=== PATIENT | male | born 1985 | race Caucasian/White ===

== ENCOUNTER 2019-09-16 14:44 | Emergency (ER) | payer SELFPAY ==
--- NOTE | 2019-09-16 15:14 | ER Document Report ---
ED Medical Screen (RME) - General Chief Complaint: Dizziness Stated Complaint: DIZZINESS Time Seen by Provider: 09/16/19 15:02 Mode of Arrival: Wheelchair Information source: Patient, Relative Notes: Family member states that they were shopping in a store and the patient had a coughing fit. Patient sister states that the coughing fit seemed very protracted and they thought that he was joking. Patient then complained of dizziness lightheadedness and left-sided headache pain with nausea. Patient has been coughing and spitting up. Sister states that patient has been confused and not acting right since. Symptoms happened just prior to arrival. I have greeted and performed a rapid initial assessment of this patient. A comprehensive ED assessment and evaluation of the patient, analysis of test results and completion of the medical decision making process will be conducted by additional ED providers. Physical Exam - Vital signs Vitals: Temp Pulse Resp BP Pulse Ox 98.3 F 82 16 147/94 H 93 09/16/19 14:53 09/16/19 14:53 09/16/19 14:53 09/16/19 14:53 09/16/19 14:53 - General Notes: Patient with occasional snoring episodes, bizarre behavior and then will shake his head and will respond appropriately to questions. Patient able to follow instructions. Course - Vital Signs Vital signs: Temp Pulse Resp BP Pulse Ox 98.3 F 82 16 147/94 H 93 09/16/19 14:53 09/16/19 14:53 09/16/19 14:53 09/16/19 14:53 09/16/19 14:53
--- NOTE | 2019-09-16 15:35 | RADIOLOGY REPORT (SQ) ---
EXAM DESCRIPTION: CHEST SINGLE VIEW COMPLETED DATE/TIME: 09/16/2019 3:15 pm REASON FOR STUDY: GONCALVES, AMS COMPARISON: None. EXAM PARAMETERS: NUMBER OF VIEWS: One view. TECHNIQUE: Single frontal radiographic view of the chest acquired. RADIATION DOSE: NA LIMITATIONS: None. FINDINGS: LUNGS AND PLEURA: No opacities, masses or pneumothorax. No pleural effusion. MEDIASTINUM AND HILAR STRUCTURES: No masses. Contour normal. HEART AND VASCULAR STRUCTURES: Heart normal in size. Normal vasculature. BONES: No acute findings. HARDWARE: None in the chest. OTHER: No other significant finding. IMPRESSION: NO ACUTE RADIOGRAPHIC FINDING IN THE CHEST. TECHNICAL DOCUMENTATION: JOB ID: [id number] [employer]- All Rights Reserved Reading location - IP/workstation name: [email or web address]
[2019-09-16] MEDS ORDERED: NORMAL SALINE 1000 ML 1,000 ML IV ONE (15:40)
--- NOTE | 2019-09-16 15:40 | RADIOLOGY REPORT (SQ) ---
EXAM DESCRIPTION: CT HEAD WITHOUT COMPLETED DATE/TIME: 09/16/2019 3:26 pm REASON FOR STUDY: GONCALVES, AMS COMPARISON: None. TECHNIQUE: Axial images acquired through the brain without intravenous contrast. Images reviewed wi th bone, brain and subdural windows. Additional sagittal and coronal reconstructions were generated. Images stored on PACS. All CT scanners at this facility use dose modulation, iterative reconstruction, and/or weight based d osing when appropriate to reduce radiation dose to as low as reasonably achievable (ALARA). [facility]: Dose Right [facility]: CareDose [facility]: Dose Right [facility]: Teradose 4D [facility]: Smart Curoverse RADIATION DOSE: CT Rad equipment meets quality standard of care and radiation dose reduction techniq ues were employed. CTDIvol: 53.2 - 55.2 mGy. DLP: 1965 mGy-cm. mGy. LIMITATIONS: Motion degraded exam. FINDINGS: VENTRICLES: Normal size and contour. CEREBRUM: No masses. No hemorrhage. No midline shift. No evidence for acute infarction. Normal gra y/white matter differentiation. No areas of low density in the white matter. CEREBELLUM: No masses. No hemorrhage. No alteration of density. No evidence for acute infarction. EXTRAAXIAL SPACES: No fluid collections. No masses. ORBITS AND GLOBE: No intra- or extraconal masses. Normal contour of globe without masses. CALVARIUM: No fracture identified. Evaluation limited secondary to motion artifact. PARANASAL SINUSES: No fluid or mucosal thickening. SOFT TISSUES: No mass or hematoma. OTHER: No other significant finding. IMPRESSION: No evidence of acute intracranial process. EVIDENCE OF ACUTE STROKE: NO. COMMENT: Quality ID # [id number]: Final reports with documentation of one or more dose reduction techniques (e.g., Automated exposure control, adjustment of the mA and/or kV according to patient size, use of iterative reconstruction technique) TECHNICAL DOCUMENTATION: JOB ID: [id number] [employer]- All Rights Reserved Reading location - IP/workstation name: [email or web address]
[2019-09-16] MEDS ORDERED: MECLIZINE HCL 25 MG TABLET PO ONE (15:41)
[2019-09-16 16:04] LABS: INTERNATIONAL RATION (INR) 0.92
[2019-09-16 16:05] LABS: PARTIAL THROMBOPLASTIN TIME 26.7 SEC (23.5-35.8)
[2019-09-16 16:08] LABS: PROTHROMBIN TIME 12.3 SEC (11.4-15.4)
[2019-09-16 16:13] LABS: ABSOLUTE BASOPHILS # (AUTO) 0.1 10^3/uL (0.0-0.2); ABSOLUTE EOSINOPHILS # (AUTO) 0.3 10^3/uL (0.0-0.6); ABSOLUTE LYMPHOCYTES (AUTO) 4.1 10^3/uL (0.5-4.7); ABSOLUTE MONOCYTES (AUTO) 0.8 10^3/uL (0.1-1.4); ABSOLUTE NEUT (AUTO) 6.3 10^3/uL (1.7-8.2); BASOPHILS % (AUTO) 0.5 % (0-2); EOSINOPHILS % (AUTO) 2.8 % (0-6); HEMATOCRIT 45.8 % (37.9-51.0); HEMOGLOBIN 15.8 g/dL (13.5-17.0); LYMPHOCYTES % (AUTO) 35.3 % (13-45); MEAN CORPUSCULAR HEMOGLOBIN 31.3 pg (27.0-33.4); MEAN CORPUSCULAR HGB CONC 34.5 g/dL (32.0-36.0); MEAN CORPUSCULAR VOLUME 91 fl (80-97); PLATELET COUNT 273 10^3/uL (150-450); RED BLOOD COUNT 5.05 10^6/uL (4.35-5.55); RED CELL DISTRIBUTION WIDTH 12.8 % (11.5-14.0); SEGMENTED NEUTROPHILS % (AUTO) 54.4 % (42-78); TOTAL CELLS COUNTED % (AUTO) 100 %; WHITE BLOOD COUNT 11.6 10^3/uL (4.0-10.5)
[2019-09-16 16:27] LABS: ALBUMIN 4.8 g/dL (3.5-5.0); ALKALINE PHOSPHATASE 51 U/L (38-126); ANION GAP 10 (5-19); ASPARTATE AMINO TRANSFERASE 18 U/L (17-59); BILIRUBIN,DIRECT 0.1 mg/dL (0.0-0.4); BILIRUBIN,TOTAL 0.4 mg/dL (0.2-1.3); BLOOD UREA NITROGEN 13 mg/dL (7-20); CALCIUM 9.3 mg/dL (8.4-10.2); CARBON DIOXIDE 29 mmol/L (22-30); CHLORIDE 101 mmol/L (98-107); CREATINE KINASE 108 U/L (55-170); GLUCOSE 103 mg/dL (75-110); POTASSIUM 4.2 mmol/L (3.6-5.0); TOTAL PROTEIN 8.1 g/dL (6.3-8.2)
[2019-09-16 16:39] LABS: CREATINE KINASE MB 0.65 ng/mL (<4.55)
[2019-09-16] MEDS: NORMAL SALINE 1000 ML 1,000 ML IV ONE ×2 (16:40→16:46)
[2019-09-16 16:41] LABS: TROPONIN I < 0.012 ng/mL
[2019-09-16 17:10] LABS: APPEARANCE,URINE CLEAR; BILIRUBIN,URINE NEGATIVE (NEGATIVE); COLOR,URINE YELLOW; GLUCOSE, URINE NEGATIVE (NEGATIVE); KETONES,URINE NEGATIVE (NEGATIVE); LEUKOCYTE ESTERASE,URINE NEGATIVE (NEGATIVE); NITRITE,URINE NEGATIVE (NEGATIVE); PROTEIN,URINE NEGATIVE (NEGATIVE); URINE SPECIFIC GRAVITY 1.023; UROBILINOGEN,URINE NEGATIVE mg/dL (<2.0)
--- NOTE | 2019-09-16 17:23 | ER Document Report ---
Entered by TESSIE LANTIGUA SCRIBE 09/16/19 1525 Acting as scribe for:GLENNY STORM DO ED General - General Chief Complaint: Dizziness Stated Complaint: DIZZINESS Time Seen by Provider: 09/16/19 15:02 Mode of Arrival: Wheelchair Information source: Patient Notes: This 34-year-old male patient presents to the emergency department today with complaints of dizziness. Patient states he has been having intermittent spells of dizziness with associated syncopal events for the last x2 years. Patient states today he did not pass out but he was "close to it" today. Patient states he has bilateral leg numbness and a cough. Patient states he has no pain today aside from his chronic back pain which is unchanged from baseline. Patient denies any recent drug usage, shortness of breath, headache, chest pain, incontinence, or fall/trauma. - Related Data Allergies/Adverse Reactions: No Known Allergies Allergy (Unverified 09/16/19 15:22) Past Medical History - General Information source: Patient, Relative - Social History Smoking Status: Current Every Day Smoker Cigarette use (# per day): Yes Drug Abuse: Prescription drugs - reports history of, nothing recently Lives with: Family Family History: Reviewed & Not Pertinent Musculoskeletal Medical History: Reports Other - chronic back pain Surgical Hx: Negative Review of Systems - Review of Systems Constitutional: No symptoms reported EENT: No symptoms reported Cardiovascular: See HPI, Dizziness, Lightheaded, Other - near syncope. denies: Chest pain Respiratory: See HPI, Cough. denies: Short of breath Gastrointestinal: No symptoms reported Genitourinary: No symptoms reported Male Genitourinary: No symptoms reported Musculoskeletal: See HPI, Back pain - chronic Skin: No symptoms reported Hematologic/Lymphatic: No symptoms reported Neurological/Psychological: See HPI, Numbness - legs bilaterally. denies: Headaches -: Yes All other systems reviewed and negative Physical Exam - Vital signs Vitals: Temp Pulse Resp BP Pulse Ox 98.3 F 82 16 147/94 H 93 09/16/19 14:53 09/16/19 14:53 09/16/19 14:53 09/16/19 14:53 09/16/19 14:53 Interpretation: Normal - General General appearance: Appears well, Alert - HEENT Head: Normocephalic, Atraumatic Eyes: Normal Pupils: PERRL - Respiratory Respiratory status: No respiratory distress Chest status: Nontender Breath sounds: Normal Chest palpation: Normal - Cardiovascular Rhythm: Regular Heart sounds: Normal auscultation Murmur: No - Abdominal Inspection: Normal Distension: No distension Bowel sounds: Normal Tenderness: Nontender Organomegaly: No organomegaly - Back Back: Normal, Tender - lumbar spine, paraspinal - Extremities General upper extremity: Normal inspection, Nontender, Normal color, Normal ROM, Normal temperature General lower extremity: Normal inspection, Nontender, Normal color, Normal ROM, Normal temperature, Normal weight bearing. No: Dennis's sign - Neurological Neuro grossly intact: Yes Cognition: Normal Orientation: AAOx4 Shen Coma Scale Eye Opening: Spontaneous [place] Coma Scale Verbal: Oriented [place] Coma Scale Motor: Obeys Commands [place] Coma Scale Total: 15 Speech: Normal Cranial nerves: Normal Cerebellar coordination: No: Gait ataxia, Truncal ataxia Motor strength normal: LUE, RUE, LLE, RLE Additional motor exam normals: Equal verification specialist, Dorsiflexion Sensory: Normal - Psychological Associated symptoms: Normal affect, Normal mood - Skin Skin Temperature: Warm Skin Moisture: Dry Skin Color: Normal Course - Re-evaluation Re-evalutation: 09/16/19 17:13 Patient is requesting to have his IV removed and be discharged. Urine is still pending. Patient is a 34-year-old male with a very vague story. Apparently was coughing today and then patient felt dizzy like he might pass out. He is having a difficult time describing to me the room spinning sensation or lightheadedness. Patient with no acute findings on CT head or chest x-ray. Feels better after fluids and meclizine. Urine is still pending. Patient denies any further substance abuse but used to take pain pills. He is neurovascularly intact with stable vitals and no concerning exam findings. Patient will be discharged home with meclizine and is to follow-up with his doctor. Return if any worsening or concerning symptoms. Understands agrees with plan. Stable for discharge. - Vital Signs Vital signs: Temp Pulse Resp BP Pulse Ox 98.3 F 82 15 133/83 H 95 09/16/19 14:53 09/16/19 14:53 09/16/19 16:01 09/16/19 16:01 09/16/19 16:01 - Laboratory Result Diagrams: 09/16/19 15:27 09/16/19 15:27 Laboratory results interpreted by me: 09/16/19 15:27 WBC 11.6 H Discharge - Discharge Clinical Impression: Dizziness Condition: Stable Disposition: HOME, SELF-CARE Instructions: Dizziness ([facility]), Meclizine ([facility]), Vertigo ([facility]) Prescriptions: Meclizine HCl [Antivert 25 mg Tablet] 25 mg PO TID #20 tablet I personally performed the services described in the documentation, reviewed and edited the documentation which was dictated to the scribe in my presence, and it accurately records my words and actions.
[2019-09-16 17:25] VITALS: BP 137/87
[2019-09-16 17:27] LABS: URINE AMPHETAMINES SCREEN NEGATIVE; URINE BARBITURATES SCREEN NEGATIVE; URINE BENZODIAZEPINES SCREEN NEGATIVE; URINE COCAINE SCREEN NEGATIVE; URINE METHADONE SCREEN NEGATIVE; URINE PHENCYCLIDINE SCREEN NEGATIVE
[2019-09-16 17:34] LABS: URINE MARIJUANA (THC) SCREEN UNCONFIRMED POSITIVE
--- NOTE | 2019-09-16 22:29 | EKG REPORT ---
SEVERITY:- NORMAL ECG - SINUS RHYTHM : Confirmed by: Itzel Vogel MD 16-Sep-2019 22:29:15
== END 2019-09-16 17:26 | disposition home or self-care (01) ==
LOC: ER 14:44
DX: R42 Dizziness and giddiness (principal); R20.0 Anesthesia of skin; R05 Cough; M54.9 Dorsalgia, unspecified; G89.29 Other chronic pain; F17.210 Nicotine dependence, cigarettes, uncomplicated
CPT/HCPCS: 93005; 99284; 96360; 36415; 82553; 82962; 82550; 85025; 85610; 85730; 80053; 81001; 84484; 80307; 71045; 70450; 93010; J7030

== ENCOUNTER 2019-09-25 17:45 | Emergency (ER) | payer SELFPAY ==
[2019-09-25 20:08] VITALS: BP 114/78
== END 2019-09-25 20:29 | disposition left against medical advice (07) ==
LOC: ER 17:45
DX: Z53.21 Procedure and treatment not carried out due to patient leaving prior to being seen by health care provider (principal)